=== PATIENT | female | born 1960 | race Caucasian/White ===

== ENCOUNTER 2018-10-06 12:56 | Emergency (ER) | payer MEDICARE, MEDICAID ==
[2018-10-06 13:08] VITALS: BP 118/72
--- NOTE | 2018-10-06 14:46 | ED ---
Throat Pain/Nasal Congestion - HPI Summary HPI Summary: Pt presents w/ Rt ear pain x 2-3 days. Sharp at times and sometimes worse w/ jaw movements. Denies rash or pain on scalp/head/face however she admits to a Rt baptism lesion around the same time - clear vesicle that she ruptured. H/o chix pox and shingles on her Lt back side - occasionally has pain here but none recently. Also dx'd w/ TMJ in the past - unsure if this feels same. Has dentures. Tried tylenol w/ some relief. Denies fever, chills, URI sx, eye sx, etc and no recent injury to face, head or neck. - History of Current Complaint Chief Complaint: UCEar Time Seen by Provider: 10/06/18 14:10 Hx Obtained From: Patient - Allergies/Home Medications Allergies/Adverse Reactions: Allergies Allergy/AdvReac Type Severity Reaction Status Date / Time desloratadine Allergy Intermediate GI Upset Verified 10/06/18 13:11 famciclovir [From Famvir] Allergy Intermediate GI Upset Verified 10/06/18 13:11 Penicillins Allergy Intermediate UPSET Verified 10/06/18 13:11 sulfamethoxazole Allergy Intermediate GI Upset Verified 10/06/18 13:11 [From Bactrim] trimethoprim [From Bactrim] Allergy Intermediate GI Upset Verified 10/06/18 13: 11 ciprofloxacin Allergy GI Upset Verified 10/06/18 13:11 PMH/Surg Hx/FS Hx/Imm Hx Previously Healthy: Yes Endocrine/Hematology History: Reports: Hx Diabetes, Hx Thyroid Disease Cardiovascular History: Reports: Hx Hypertension Respiratory History: Reports: Hx Chronic Obstructive Pulmonary Disease (COPD) - early Denies: Hx Asthma GI History: Denies: Hx Ulcer - Cancer History Cancer Type, Location and Year: cervical CA - - Surgical History Surgery Procedure, Year, and Place: 1990 Cervix. 1999 Lower Back Discectomy. 2002 Cervix and Cysts removed. 2006 Complete Hysterectomy. 2010 Lithotrypsy Rt Kidney Infectious Disease History: Yes Infectious Disease History: Denies: Hx Hepatitis, Hx Human Immunodeficiency Virus (HIV), Hx of Known/ Suspected MRSA, Traveled Outside the [place] in Last 30 Days - Social History Lives: With Family Alcohol Use: None Hx Substance Use: No Substance Use Type: Reports: None Hx Tobacco Use: Yes - not currently Smoking Status (MU): Former Smoker Review of Systems Constitutional: Negative Negative: Fever, Chills, Fatigue Eyes: Negative Negative: Photophobia, Blurred Vision, Diplopia, Drainage, Erythema Positive: Ear Ache. Negative: Epistaxis, Dental Pain, Sore Throat, Nasal Discharge Cardiovascular: Negative Respiratory: Negative Gastrointestinal: Negative Positive: no symptoms reported Musculoskeletal: Other - RT ear pain worse w/ jaw movement Positive: Rash Neurological: Negative Psychological: Normal All Other Systems Reviewed And Are Negative: Yes Physical Exam Triage Information Reviewed: Yes Vital Signs On Initial Exam: Initial Vitals Temp Pulse Resp BP Pulse Ox 97.3 F 106 18 118/72 98 10/06/18 13:04 10/06/18 13:04 10/06/18 13:04 10/06/18 13:04 10/06/18 13:04 Vital Signs Reviewed: Yes Appearance: Positive: Well-Appearing, No Pain Distress, Obese Skin: Positive: Warm, Skin Color Reflects Adequate Perfusion, Dry - scabbed lesion over Rt baptism region - no other lesions observed on inspection of scalp/ face Head/Face: Positive: Normal Head/Face Inspection - as above. Negative: TMJ Tenderness - Lt TMJ clicks w/ movement - no edema and NTTP B/L Eyes: Positive: Normal, EOMI, GALE, Conjunctiva Clear, Other: - no lesions of cornea observed. Negative: Conjunctiva Inflammed, Discharge ENT: Positive: Hearing grossly normal, Pharynx normal, TMs normal - thin film of fine yellow cerumen along superior aspect of Rt EAC - does not appear to be tuching TM which is pearly white and w/o bulging, lesions, erythema or fluid collection - no otorrhea, Uvula midline. Negative: Nasal congestion, Nasal drainage, Tonsillar swelling, Tonsillar exudate, Trismus, Muffled voice, Sinus tenderness Dental: Negative: Abscess @ Neck: Positive: Supple, Nontender, No Lymphadenopathy Respiratory/Lung Sounds: Positive: Clear to Auscultation, Breath Sounds Present. Negative: Unable to speak in full sentences, Fatigue Cardiovascular: Positive: Normal Musculoskeletal: Positive: Normal, Strength/ROM Intact Neurological: Positive: Normal, Sensory/Motor Intact, Alert, Oriented to Person Place, Time, CN Intact II-III, Facial Symmetry, Speech Normal Psychiatric: Positive: Normal Diagnostics - Vital Signs Vital Signs Temp Pulse Resp BP Pulse Ox 10/06/18 13:04 97.3 F 106 18 118/72 98 - Laboratory Lab Statement: Any lab studies that have been ordered have been reviewed, and results considered in the medical decision making process. EENT Course/Dx - Course Course Of Treatment: Definitive cause of Rt ear pain was not identified today. Diff dx: cerumen however this is delicate and non-invasive so low clinical suspicion of cause. She also has some TMJ sx and clincal findings which could be causing pain. Additionally she has a lesion over ther Rt baptism concerning for early onset HZV - discussed starting tx today, testing and close f/u w/ danger s/sx of when to seek earlier tx. Pt agrees w/ plan. - Diagnoses Provider Diagnoses: Right ear pain Discharge - Sign-Out/Discharge Documenting (check all that apply): Patient Departure All imaging exams completed and their final reports reviewed: No Studies - Discharge Plan Condition: Stable Disposition: HOME Prescriptions: ValACYclovir (*) [Valtrex 1 GM(*)] 1 gm PO TID #21 tab Patient Education Materials: Shingles (ED), Temporomandibular Disorder (ED) Referrals: Rudi Fox MD [Primary Care Provider] - Additional Instructions: The definitive diagnosis has not been made however you may have shingles. It is important that you have close follow-up of your ear pain as a result. Call today to schedule appointment in next 1-2 days. If this worsens in the meantime , go to the ED. Additionally, if you develop eye pain, irritation, change in vision, headache, etc, go to the ED. We discussed starting medication versus waiting, especially with your history of allergy to famciclovir. Should you develop a rash, itching, etc, stop medication and start benadryl 50mg then seek medical attention. If you develop difficulty breathing or swallowing, go to the ED. Labs were drawn today to assess for acute shingles - followup with PCP or call here for results if you have not heard in 1 week. You may also have TMJ syndrome - see education for details and treatment options. First follow-up with your dentist to check your denture alignment. If this is normal, you may benefit from physical therapy. - Billing Disposition and Condition Condition: STABLE Disposition: Home
== END 2018-10-06 15:02 | disposition home or self-care (01) ==
LOC: UCEAST 12:56
DX: H92.01 Otalgia, right ear (principal); Z88.0 Allergy status to penicillin; Z88.1 Allergy status to other antibiotic agents; E11.9 Type 2 diabetes mellitus without complications; Z87.891 Personal history of nicotine dependence
CPT/HCPCS: 36415; 86140; 86787; 99202; G0463

== ENCOUNTER 2019-07-19 07:56 | Emergency (ER) | payer MEDICARE, MEDICAID ==
--- OUTSIDE RECORDS SUMMARY | 2019-07-19 08:04 | XMS REPORT | Summary of Care ---
:1960 Author Organization [facility] Address [address] [facility] [place] [address] Care Team Providers Name Role Phone Rudi Fox MD Primary Care Provider Maritza Torres OD Primary Multi Disciplined Language Analyst/Echocardiograph Tech Salud Montiel RN [facility] Supervisor Gas Meter Repair Unavailable Reason for Visit Reason Comments Follow-up Follow-up on GERD & switch to Pantoprazole. Encounter Details Date Type Department Care Team Description 06/08/2019 Office Visit [place], Gastroesophageal reflux disease , esophagitis presence not specified (Primary Dx); Gastroenterology/He Ale Umaña NP Irritable bowel syndrome with diarrhea patology 1 [facility] [address] [facility] [place] [address] [place] [id number] Allergies Active Allergy Reactions Severity Noted Date Comments Moxifloxacin Hydrochloride GI Reaction High 10/14/2008 Reports vomiting, dizzy, confused, racing heart. Bactrim GI Reaction 01/18/2008 Ciprofloxacin GI Reaction 01/18/2008 Clarinex GI Reaction 01/18/2008 Penicillins GI Reaction 01/18/2008 Valtrex GI Reaction 01/18/2008 documented as of this encounter (statuses as of 06/08/2019) Medications Medication Sig Dispensed Refills Start Date End Date Status TYLENOL CAPS 500 MG OR Take by mouth 0 Active 500 MG PO CAPS NEEDED MULTIPLE VITAMIN PO Take 1 by mouth 0 Active DAILY. fexofenadine (TYRA) Take 180 mg by 0 Active 180 MG Oral Tab mouth NEEDED. [place] & Syringes Does by Does not apply 100 Each 5 08/14/2011 Active not apply Misc route. Pen needle uf short BD patient uses 2 times daily 31G x 5/16 Glucose Blood In Vitro 1 Strip by Does 100 Strip 11 04/23/2017 Active Strip not apply route THREE TIMES DAILY. One touch ultra mini test strips DX E11.[address] 1 Tab under 25 Tab 3 05/05/2017 Active (NITROSTAT) 0.4 MG tongue EVERY FIVE Sublingual SL MINUTES NEEDED TabIndications: for chest pain. Coronary artery vasospasm (HCC) BD PEN NEEDLE VISHAL U/F use as directed 100 Each 5 02/02/2018 Active 32G X 4 MM Does not twice a day apply Misc fluticasone (FLONASE) [place] 2 Sprays in 3 Bottle 3 07/13/2018 Active 50 MCG/ACT Nasal nose DAILY. Suspension metFORMIN (GLUCOPHAGE) take 2 tablets by 450 Tab 5 11/10/2018 Active 500 MG Oral Tab mouth every morning then 1 tablet AT NOON and 2 tablets every evening atorvastatin (LIPITOR) take 1 tablet by 90 Tab 3 11/30/2018 Active 40 MG Oral mouth once daily TabIndications: Coronary artery disease meclizine (ANTIVERT) 25 take 1 tablet by 90 Tab 3 01/25/2019 Active MG Oral Tab mouth three times a day Additional information Patient taking differently: take 1 tablet by mouth two times a day, Reported on 03/30/2019 9:20 AM VICTOZA 18 MG/3ML INJECT 0.6 MILLIGRAMS 9 mL 5 01/27/2019 Active Subcutaneous Solution SUBCUTANEOUSLY ONCE DAILY FOR Pen-injector 1 WEEK, 1.2 MILLIGRAMS DAILY FOR 1 WEEK THEN INJECT 1.8 MILLIGRAMS DAILY Additional information Patient taking differently: INJECT 1.8 MILLIGRAMS DAILY, Reported on 2018 9:22 AM BD PEN NEEDLE VISHAL U/F 32G X use as directed once 30 Each 5 01/27/2019 Active 4 MM Does not apply Misc daily pioglitazone (ACTOS) 45 MG Take 1 Tab by mouth 90 Tab 3 03/02/2019 Active Oral Tab DAILY. Alum & Mag Hydroxide-Simeth Take by mouth NEEDED. 0 Active (MYLANTA PO) pantoprazole (PROTONIX) 40 Take 1 Tab by mouth 30 Tab 5 03/30/2019 Active MG Oral Tab EC DAILY. lisinopril (PRINIVIL, Take 1 Tab by mouth 90 Tab 4 04/19/2019 Active ZESTRIL) 20 MG Oral Tab DAILY. albuterol HFA (PROAIR HFA) Take 2 Puffs by 1 Inhaler 4 04/19/2019 Active 108 (90 Base) MCG/ACT inhalation EVERY FOUR Inhalation Aero Soln HOURS NEEDED (short of breath). amLodipine (NORVASC) 5 MG Take 1 Tab by mouth 90 Tab 3 05/05/2019 Active Oral TabIndications: DAILY. Coronary artery vasospasm (HCC) levothyroxine (SYNTHROID) Take 1 Tab by mouth 90 Tab 3 05/25/2019 Active 112 MCG Oral Tab BEFORE BREAKFAST. dicyclomine (BENTYL) 20 MG Take 1 Tab by mouth 120 Tab 1 06/08/2019 Active Oral Tab BEFORE MEALS AND AT BEDTIME NEEDED (diarrhea). documented as of this encounter (statuses as of 06/08/2019) Active Problems Problem Noted Date Adenoma of left adrenal gland 10/23/2017 History of cervical cancer 12/04/2015 Overview: 2006 S/P TSH right ovary left in Adrenal adenoma 06/01/2015 Coronary artery vasospasm 04/27/2015 Coronary artery disease 04/18/2015 Overview: Angina admission [place] Nov 2014 Diagnosis coronary vasospasm/angina Pulmonary nodule, right 04/18/2015 Overview: Ct scan winter [address] scan 5 mm right middle lung Oct 2015 COPD (chronic obstructive pulmonary disease) 04/18/2015 Overview: Mild by [facility] winter 2014 Ex smoker quit 2014, smoked 30-50 pack per day years Gastroesophageal reflux disease without esophagitis 01/28/2009 Overview: EGD negative 10/03 IBS (irritable bowel syndrome) 01/28/2009 History of tobacco use 06/21/2008 Overview: Quit Oct 2005. Restarted 2006. Quit Nov 2014 50 pack per day year history Uncontrolled type 2 diabetes mellitus without complication 06/21/2008 Overview: Hemoglobin A1C 6.1% 4.2014 Essential hypertension, benign 06/21/2008 Hypothyroidism 06/21/2008 Mixed hyperlipidemia 06/21/2008 Chronic low back pain 06/21/2008 Overview: Lumbar disc disease-injury 1994. Lumbar disc surgery discectomy L4-[address] [facility] Neurosurgeon Dr Beltrán [facility] repeat mri showed a second herniated disc L3-4: physical therapy and water therapy-partial response 2009 On disability since 08/02 for chronic low back pain documented as of this encounter (statuses as of 06/08/2019) Resolved Problems Problem Noted Date Resolved Date Type 2 diabetes mellitus without complication 06/01/2015 12/04/2015 Essential hypertension 06/01/2015 02/06/2017 Thyroid activity decreased 06/01/2015 08/01/2016 Hyperlipidemia LDL goal < 100 06/19/2011 04/18/2015 Hypertension 06/19/2011 04/18/2015 Calculus of kidney 06/14/2011 04/18/2015 Gross hematuria 04/26/2011 04/18/2015 Kidney stones 06/03/2009 04/19/2019 Overview: Last episode 2004 [facility] emergency room [address] scan. Dyspepsia 01/28/2009 04/18/2015 Overview: CT scan, bllod work, gastric epmtying scan all normal 06-04 [facility]. Tobacco Use Disorder 04/18/2015 documented as of this encounter (statuses as of 06/08/2019) Immunizations Name Administration Dates Next Due Influenza (IM) Preservative Free 07/29/2018, 07/27/2017, 07/21/2015, 07/29/2011, 07/31/2009 Influenza Vaccine Whole 07/04/2010, 08/29/2008 PNEUMOCOCCAL POLYSACCHARIDE VACCINE 07/31/2009 documented as of this encounter Social History Tobacco Use Types Packs/Day Years Used Date Former Smoker Cigarettes 0.5 20 Smokeless Tobacco: Former User Quit: 12/25/2014 Comments: working with PCP Alcohol Use Drinks/Week oz/Week Comments No Sex Assigned at Date Recorded Not on file Job Start Date Occupation Industry Not on file Not on file Not on file Travel History Travel Start Travel End No recent travel history available. documented as of this encounter Last Filed Vital Signs Vital Sign Reading Time Taken Comments Blood Pressure 114/70 06/08/2019 2:33 PM EDT Pulse 72 06/08/2019 2:33 PM EDT Temperature 36.5 06/08/2019 2:33 PM EDT C (97.7 F) Respiratory Rate - - Oxygen Saturation - - Inhaled Oxygen Concentration - - Weight 93.9 kg (207 lb) 06/08/2019 2:33 PM EDT Height 165.1 cm (5' 5") 06/08/2019 2:33 PM EDT Body Mass Index 34.45 06/08/2019 2:33 PM EDT documented in this encounter Patient Instructions Patient InstructionsWiAle fagan NP - 06/08/2019 2:40 PM EDT1. Continue the Pantoprazole as directed 2. Will start Bentyl before lunch as directed, may repeat the dose 3. Follow up if no improvement Thank you for choosing the [facility] for your needs today! -Ale Swain N.P. , Please call if you need to cancel or change your appt. time. Thank you for choosing [facility] for your health care needs, and for consulting with [facility] today. You may receive a survey following this visit, or after an upcoming hospital stay. As easy as it is to feel overloaded with surveys, we are required to send them out randomly and they do provide important feedback so that we may serve your needs in the best way. Please do take the few minutes required to complete the survey if you receive one. We get them too, after seeing the doctor, and they only take a few minutes to complete. documented in this encounter Progress Notes Ale Swain NP - 06/08/2019 2:40 PM EDT PATIENT: Gilda Fairbanks : 1960 DATE OF SERVICE: 06/08/2019 REFERRING PRACTITIONER: Ale Swain PRIMARY CARE PROVIDER: Rudi Fox CHIEF COMPLAINT: Chief Complaint Patient presents with Follow-up Follow-up on GERD & switch to Pantoprazole. Subjective HISTORY OF PRESENT ILLNESS: Gilda Fairbanks is a 59-y.o. female who presents for follow-up of IBS and GERD. Doing well on Pantoprazole daily, still having diarrhea most afternoons after her lunch. Reports she typically eats watermelon for lunch. Denies abdominal pain,heartburn, dysphagia, fatigue, nausea, vomiting, melena, hamatemesis, hematochezia, constipation, jaundice, fevers, chills, night sweats , weight loss, easy bruising, chest pain,shortness of breath, dysuria, hematuria , pyuria, joint pains, acholic stools, dark urine or systemicpruritis. Current Outpatient Medications Medication Sig albuterol HFA (PROAIR HFA) 108 (90 Base) MCG/ACT Inhalation Aero Soln Take 2 Puffs by inhalation EVERY FOUR HOURS NEEDED (short of breath). Alum & Mag Hydroxide-Simeth (MYLANTA PO) Take by mouth NEEDED. amLodipine (NORVASC) 5 MG Oral Tab Take 1 Tab by mouth DAILY. atorvastatin (LIPITOR) 40 MG Oral Tab take 1 tablet by mouth once daily BD PEN NEEDLE VISHAL U/F 32G X 4 MM Does not apply Misc use as directed twice a day BD PEN NEEDLE VISHAL U/F 32G X 4 MM Does not apply Misc use as directed once daily dicyclomine (BENTYL) 20 MG Oral Tab Take 1 Tab by mouth BEFORE MEALS AND AT BEDTIME NEEDED(diarrhea). fexofenadine (TYRA) 180 MG Oral Tab Take 180 mg by mouth NEEDED. fluticasone (FLONASE) 50 MCG/ACT Nasal Suspension [place] 2 Sprays in nose DAILY. Glucose Blood In Vitro Strip 1 Strip by Does not apply route THREE TIMES DAILY. One touch ultra mini test strips DX E11.9 levothyroxine (SYNTHROID) 112 MCG Oral Tab Take 1 Tab by mouth BEFORE BREAKFAST. lisinopril (PRINIVIL, ZESTRIL) 20 MG Oral Tab Take 1 Tab by mouth DAILY. meclizine (ANTIVERT) 25 MG Oral Tab take 1 tablet by mouth three times a day (Patient taking differently: take 1 tablet by mouth two times a day) metFORMIN (GLUCOPHAGE) 500 MG Oral Tab take 2 tablets by mouth every morning then 1 tablet ATNOON and 2 tablets every evening MULTIPLE VITAMIN PO Take 1 by mouth DAILY. [place] & Syringes Does not apply Misc by Does not apply route. Pen needle uf short BD patient uses 2 times daily 31G x 5/16 nitroglycerin (NITROSTAT) 0.4 MG Sublingual SL Tab Place 1 Tab under tongue EVERY FIVE MINUTES NEEDED for chest pain. pantoprazole (PROTONIX) 40 MG Oral Tab EC Take 1 Tab by mouth DAILY. pioglitazone (ACTOS) 45 MG Oral Tab Take 1 Tab by mouth DAILY. TYLENOL CAPS 500 MG OR 500 MG PO CAPS Take by mouth NEEDED VICTOZA 18 MG/3ML Subcutaneous Solution Pen-injector INJECT 0.6 MILLIGRAMS SUBCUTANEOUSLY ONCE DAILY FOR 1 WEEK, 1.2 MILLIGRAMS DAILY FOR 1 WEEK THEN INJECT 1.8 MILLIGRAMS DAILY (Patient taking differently: INJECT 1.8 MILLIGRAMS DAILY) No current facility-administered medications for this visit. Allergies Allergen Reactions Avelox [Moxifloxacin Hydrochloride] GI Reaction Reports vomiting, dizzy, confused, racing heart. Bactrim GI Reaction Ciprofloxacin GI Reaction Clarinex GI Reaction Penicillins GI Reaction Valtrex [Valtrex] GI Reaction REVIEW OF SYSTEMS: All remaining review of systems was negative except for as noted in the history of present illness/subjective. Objective PHYSICAL EXAMINATION: VITALS: BP 114/70 | Pulse 72 | Temp 97.7 F (36.5 C) | Ht 5' 5" ( 1.651 m) | Wt 207 lb (93.9 kg) | BMI 34.45 kg/m Body mass index is 34.45 kg/m. GENERAL: alert, oriented, no acute distress. HEENT: No scleral icterus, MMM Psych: Affect normal Neck: no lymphadenopathy LUNGS: clear to auscultation bilaterally. HEART: regular rhythm, no murmurs, no gallops, no rubs. ABDOMEN: general exam: soft, epigastrium tender, non-distended, without masses or organomegaly, normal active bowel sounds, Rubalcava's sign negative. Extrmities: no edema Skin: clear Neuro: gait normal, a&o x 3 RECTAL: exam deferred. IMPRESSION: ICD-9-CM ICD-10-CM 1. Gastroesophageal reflux disease, esophagitis presence not specified 530.81 K21.9 2. Irritable bowel syndrome with diarrhea 564.1 K58.0 Plan PLAN: Patient Instructions 1. Continue the Pantoprazole as directed 2. Will start Bentyl before lunch as directed, may repeat the dose 3. Follow up if no improvement Thank you for choosing the [facility] for your needs today! -Ale Swain N.P. , Please call if you need to cancel or change your appt. time. Thank you for choosing [facility] for your health care needs, and for consulting with [facility] today. You may receive a survey following this visit, or after an upcoming hospital stay. As easy as it is to feel overloaded with surveys, we are required to send them out randomly and they do provide important feedback so that we may serve your needs in the best way. Please do take the few minutes required to complete the survey if you receive one. We get them too, after seeing the doctor, and they only take a few minutes to complete. Author: Ale Swain NP 06/08/2019 14:59 documented in this encounter Plan of Treatment Date Type Specialty Care Team Description 07/23/2019 Nurse/Clinical Support Internal Medicine 07/23/2019 Office Visit Internal Medicine Rudi Fox MD [address] [place] [address] [phone] 05/10/2020 Office Visit Cardiology Ulysses Ramires MD [address] [place] [id number] Health Maintenance Due Date Last Done Comments MEDICARE ANNUAL WELLNESS 1960 VISIT ZOSTER IMMUNIZATION SERIES 2011 (1 of 2) HEMOGLOBIN A1C 05/18/2019 02/16/2019, 04/08/2018, 11/26/2017, Additional history exists INFLUENZA VACCINE (#1) 2019 07/29/2018, 07/27/2017, 07/21/2015, Additional history exists FOOT EXAM 02/18/2020 02/17/2019, 02/17/2019, 01/26/2018, Additional history exists DEPRESSION SCREENING 04/19/2020 04/19/2019 MAMMOGRAM (SCREENING) 05/05/2020 05/05/2019, 04/28/2018, 03/03/2017, Additional history exists LIPID DISORDER SCREENING 06/01/2020 06/01/2019, 11/30/2018, 04/08/2018, Additional history exists Diabetic Eye Exam 07/28/2020 07/28/2018, 07/22/2017, 07/19/2016 COLONOSCOPY SCREENING 04/04/2027 04/04/2017, 04/04/2017, 04/12/2014 (Previously completed), Additional history exists PNEUMOCOCCAL 0-64 YRS Completed 07/31/2009 HPV IMMUNIZATION SERIES Aged Out No longer eligible based on patient's age to complete this topic MENINGOCOCCAL VACCINE IMM Aged Out No longer eligible based on patient's age to complete this topic documented as of this encounter Goals Goal Patient Goal Associated Recent Patient-Stated? Author Type Problems Progress Blood Pressure Blood Pressure 114/70 No Tee, < 140/90 (06/08/2019 Carol, 2:33 PM EDT) Note: This is an individualized treatment (blood pressure) goal for Gilda Fairbanks: Displayed above (on the left) is your goal for blood pressure control. Your most recent blood pressure is also shown above, on the right. You should try to achieve blood pressures that are lower than your goal listed above (on the left). Glycohemoglobin A1c < 7.0 Diabetes 6.6 (04/08/2018 8:34 No Carol Oliveira, AM EDT) Note: This is an individualized treatment (diabetes control, HgbA1C) goal for Gilda Fairbanks: Displayed above is your progress towards your HgbA1C goal. Your goal is shown above (on the left); your most recent HgbA1C is shown on the right. Note that lower numbers are better. Weight loss vs. 18 mo Lifestyle 7 (06/08/2019 2:33 PM No Carol Oliveira MD max (lbs) >= 10 EDT) Note: This is an individualized lifestyle goal for Gilda Fairbanks: Your body mass index (BMI) is more than 30. You should lose weight. A reasonable starting goal is to lose 10 pounds. Displayed above is how many pounds you have lost thus far towards your 10 pound weight loss goal. Keep immunizations current Lifestyle No Carol Oliveira MD Note: This is an individualized lifestyle goal for Gilda Fairbanks: Please be sure to keep up-to-date on recommended immunizations. For example, this would include a yearly influenza vaccine. Immunization status can be seen by looking at the Health Maintenance sections of your [facility], Plan of Care, and any After Visit Summaries. Take all prescribed medications as Self-management No Carol Oliveira MD directed Note: This is an individualized self-management goal for Gilda Fairbanks: Please take all prescribed medications as directed. 1. Do not skip doses. If you cannot afford your medications, talk with your doctor. 2. Use a pill reminder system such as a pill box if needed. Your pharmacist can help you with this. 3. Contact your Pharmacy 5 days before your medication runs out. If you cannot take your medications for any reasons, talk with your doctor. 4. Please bring all of your medication bottles and inhalers (or a list of all your medications/inhalers) with you to every visit. Potential barriers to meeting all of your care plan goals will continue to be addressed on an ongoing basis. documented as of this encounter Results Not on filedocumented in this encounter Visit Diagnoses Diagnosis Gastroesophageal reflux disease, esophagitis presence not specified - Primary Irritable bowel syndrome with diarrhea Irritable bowel syndrome documented in this encounter Insurance Payer Benefit Plan / Subscriber ID Effective Dates Phone Address Type Group MEDICARE MEDICARE PART A xxxxxxxxxxx 2006-Present Medicare & B [place] xxxxxxxx 2016-Present Medicaid [place] MED[place] Guarantor Name Account Type Relation to Date of Phone Billing Patient Address Gilda Fairbanks Personal/Family [address] ([address]) [address] [place], [place] ([place]) [id number] documented as of this encounter
[2019-07-19 08:07] VITALS: BP 113/68
--- NOTE | 2019-07-19 08:45 | UC ---
Hand/Wrist HPI - HPI Summary HPI Summary: Patient presents to urgent care for evaluation of her right middle finger. Patient's left hand. Patient states last night she was on the floor picking up some wheeze. Patient she stood up with her finger in the flex position and put on the ground. Patient states she felt a pop popped. Patient with pain at her PIP since this time. Patient stated little bit of swelling. Patient took some Tylenol last night at health. Patient did apply ice. No analgesia today. Patient states she wanted to get checked to make sure wasn't broken. Patient without a previous history of injury to her hand. Patient's skin intact. Patient's medications reviewed this visit. - History Of Current Complaint Chief Complaint: UCUpperExtremity Stated Complaint: FINGER INJURY Time Seen by Provider: 07/19/19 08:14 Hx Obtained From: Patient ?: No Pain Intensity: 6 - Allergies/Home Medications Allergies/Adverse Reactions: Allergies Allergy/AdvReac Type Severity Reaction Status Date / Time desloratadine Allergy Intermediate GI Upset Verified 07/19/19 08:08 famciclovir [From Famvir] Allergy Intermediate GI Upset Verified 07/19/19 08:08 Penicillins Allergy Intermediate UPSET Verified 07/19/19 08:08 sulfamethoxazole Allergy Intermediate GI Upset Verified 07/19/19 08:08 [From Bactrim] trimethoprim [From Bactrim] Allergy Intermediate GI Upset Verified 07/19/19 08: 08 ciprofloxacin Allergy GI Upset Verified 07/19/19 08:08 Home Medications: Home Medications Dulaglutide [Trulicity] 1 % IM WEEKLY 07/19/19 [History Confirmed 07/19/19] Pantoprazole TAB * [Protonix TAB*] 1 tab PO DAILY 07/19/19 [History Confirmed ] Pioglitazone TAB* [Actos TAB*] 1 tab PO DAILY 07/19/19 [History Confirmed ] PMH/Surg Hx/FS Hx/Imm Hx Previously Healthy: Yes - Surgical History Surgical History: Yes Surgery Procedure, Year, and Place: 1990 Cervix. 1999 Lower Back Discectomy. 2002 Cervix and Cysts removed. 2006 Complete Hysterectomy. 2010 Lithotrypsy Rt Kidney - Family History Known Family History: Positive: Non-Contributory - Social History Lives: With Family Alcohol Use: None Substance Use Type: None Smoking Status (MU): Former Smoker When Did the Patient Quit Smoking/Using Tobacco: about 6 montsh ago Review of Systems All Other Systems Reviewed And Are Negative: No Constitutional: Positive: Negative Skin: Positive: Bruising Musculoskeletal: Positive: Other: - Right middle finger pain Physical Exam - Summary Physical Exam Summary: Vital Signs Reviewed: Yes A+Ox3, no distress Eyes: Conjunctiva Clear ENT: Hearing grossly normal neck: supple Respiratory: Positive: No respiratory distress, No accessory muscle use Cardiovascular: skin color reflect adequate perfusion 2+ radial, 2+ ulnar CBT < 2 sec Musculoskeletal Exam: + flex/ext MCP, DIP, PIP against resistance, mild discomfort at PIP with full flexion, no lateral joint laxity with testing. Neurological: Positive: Alert, ambulatory without difficulty Psychological: Positive: Normal Response To examiner Skin: Positive: no rash, mild edema, mild ecchymosis right prox DIP mild edema mild discomfort with palpation dorsum right DIP Triage Information Reviewed: Yes Vital Signs: Initial Vital Signs Temp 97.8 F 07/19/19 08:03 Pulse 66 07/19/19 08:03 Resp 16 07/19/19 08:03 BP 113/68 07/19/19 08:03 Pulse Ox 100 07/19/19 08:03 Diagnostics - Radiology No standard instances Radiology Interpretation Completed By: Radiologist - Patient Name: GABRIEL PERES Medical Record#: [id number] Ordering Physician: Niyah Joy MD Acct.#: [id number] : 1960 Age: 59 Sex: F Location: [facility] Exam Date: 07/19/19814 ADM Status: REG ER Order Information: FINGER RIGHT MIDDLE Accession Number: [id number] CPT: 07242 Indication: Pain PIP joint RIGHT third finger following forced flexion injury yesterday. Ecchymosis. Comparison: No relevant prior exams available on the [facility] PACS for comparison. Technique: 3 views RIGHT third finger REPORT AND IMPRESSION: #. Negative for fracture or articular malalignment. Fusiform soft tissue swelling most prominent at the PIP joint. _ <Electronically signed by Regis Lake MD in OV> 07/19/19839 Dictated By: Regis Lake MD Dictated Date/Time: 07/19/19837 Transcribed Date/Time: 07/19/19837 Copy to: CC:Niyah Joy MD; Rudi Fox MD Imaging - [facility] Imaging - [facility] Imaging - [facility] [id number] [place] [id number] [place] [id number] ph ([phone]) ph ([phone] ph [phone]) This report is only to be considered final once signed by the Provider(s ) as displayed in the "<Electronically Signed by >" field (s). Absence of a signature indicates the report is in a draft status and still needs to be finalized. In the event this document was created by someone other than the signing Provider, the individual initiating the document will be listed in the "Entered by:" or "Dictated by:" katz. 1 of 1 Hand/Wrist Course/Dx - Course Course Of Treatment: Patient presents to urgent care for evaluation of a right middle finger. Patient states she stood up yesterday with her hand in a flexed position. Patient states she postop from middle finger developed some pain after she heard a pop. Patient with mild edema to the right middle PIP joint. Patient with full range of motion against resistance. Patient with good sensation and cap refill. We'll check imaging studies. Low suspicion for fracture. We'll place and splint. Motrin Tylenol. Ice. Elevate. Follow-up with orthopedics PCP. Patient states agreement and comfortable with plan. declined work note - Differential Dx/Diagnosis Provider Diagnosis: Sprain of right middle finger Discharge ED - Sign-Out/Discharge Documenting (check all that apply): Patient Departure All imaging exams completed and their final reports reviewed: Yes - Discharge Plan Condition: Stable Disposition: HOME Patient Education Materials: Finger Sprain (ED) Referrals: Rudi Fox MD [Primary Care Provider] - Isma Amanda MD [Medical Doctor] - Additional Instructions: - Wear splint as much as possible for comfort and support - Okay to alternate ibuprofen (Advil, Motrin) and Tylenol (acetaminophen) every 3 hours for pain or fever. Take with food. Do NOT take for more than 4-5 days. - Okay to apply ice (wrapped in a towel) 20 minutes at a time, 2-3 times a day. - Your pain should improve over the next several days - if you have increased pain, swelling, reddness or any other concerns it is recommended you contact the simulation specialist or your primary doctor for re-evaluation. - Billing Disposition and Condition Condition: STABLE Disposition: Home
== END 2019-07-19 09:02 | disposition home or self-care (01) ==
LOC: UCEAST 07:56
DX: S63.612A Unspecified sprain of right middle finger, initial encounter (principal); X50.9XXA Other and unspecified overexertion or strenuous movements or postures, initial encounter; Y92.9 Unspecified place or not applicable; Z88.0 Allergy status to penicillin; Z88.2 Allergy status to sulfonamides; Z87.891 Personal history of nicotine dependence
CPT/HCPCS: 73140; 99211; G0463

== ENCOUNTER 2019-10-20 12:27 | Observation (INO) | payer MEDICARE, MEDICAID ==
--- NOTE | 2019-10-20 12:40 | ED ---
Upper Extremity Pain - HPI Summary HPI Summary: The patient is a 59 y/o F presenting to [facility] with a chief complaint of LUE pain onset this morning around 0800. She reports that the pain begins in the left axilla and radiates into the left anterior chest and scapular region as well as down the arm. There is intermittent numbness in the left arm and into the fingers. She notes few days of nausea. She denies any SOB, cough, diaphoresis, edema, or calf pain. Symptoms rated 3/10 in severity. She had one 81mg ASA today. No NTG today. She has history of cardiac disease (artery that spasms, unsure of name); current episode is different that the spasms she has had in the past. Last stress test and cardiac cath a few years ago. FHx: cardiac disease. PMHx: HTN, DM, hypothyroidism, GERD, COPD. Former smoker, no EtOH, no substance use. Medications reviewed. Allergies noted. - History of Current Complaint Chief Complaint: EDExtremityUpper Stated Complaint: L ARM PAIN PER PT Time Seen by Provider: 10/20/19 12:32 Hx Obtained From: Patient Mechanism Of Injury: Unknown Onset/Duration: Started Hours Ago - 0800, Still Present Timing: Lasting Hours Severity Initially: Moderate Severity Currently: Moderate Pain Location: Other: - left axilla down arm, into scapula, and into left anterior chest Character: Dull Aggravating Factor(s): Nothing Alleviating Factor(s): Nothing Associated Signs & Symptoms: Positive: Chest Pain, Nausea, Other - numbness in LUE; Negative: cough, edema, calf pain. Negative: SOB, Diaphoresis - Allergies/Home Medications Allergies/Adverse Reactions: Allergies Allergy/AdvReac Type Severity Reaction Status Date / Time desloratadine Allergy Intermediate GI Upset Verified 10/20/19 12:31 famciclovir [From Famvir] Allergy Intermediate GI Upset Verified 10/20/19 12:31 Penicillins Allergy Intermediate UPSET Verified 10/20/19 12:31 sulfamethoxazole Allergy Intermediate GI Upset Verified 10/20/19 12:31 [From Bactrim] trimethoprim [From Bactrim] Allergy Intermediate GI Upset Verified 10/20/19 12: 31 ciprofloxacin Allergy GI Upset Verified 10/20/19 12:31 PMH/Surg Hx/FS Hx/Imm Hx Endocrine/Hematology History: Reports: Hx Diabetes - diet controlled, Hx Thyroid Disease Cardiovascular History: Reports: Hx Hypertension Respiratory History: Reports: Hx Chronic Obstructive Pulmonary Disease (COPD) - early Denies: Hx Asthma GI History: Denies: Hx Ulcer - Cancer History Cancer Type, Location and Year: cervical CA - - Surgical History Surgical History: Yes Surgery Procedure, Year, and Place: 1990 Cervix. 1999 Lower Back Discectomy. 2002 Cervix and Cysts removed. 2006 Complete Hysterectomy. 2010 Lithotrypsy Rt Kidney Infectious Disease History: No Infectious Disease History: Denies: Hx Hepatitis, Hx Human Immunodeficiency Virus (HIV), Hx of Known/ Suspected MRSA, Traveled Outside the [place] in Last 30 Days - Family History Known Family History: Positive: Cardiac Disease - Social History Alcohol Use: None Hx Substance Use: No Substance Use Type: Reports: None Hx Tobacco Use: Yes - not currently Smoking Status (MU): Former Smoker Review of Systems Negative: Skin Diaphoresis Positive: Chest Pain - left anterior Negative: Shortness Of Breath, Cough Positive: Nausea Positive: Myalgia - left axilla into anterior chest and into scapula. Negative : Edema, Other - calf pain Positive: Numbness - left arm into fingers All Other Systems Reviewed And Are Negative: Yes Physical Exam - Summary Physical Exam Summary: Constitutional: Well-developed, Well-nourished, Alert. (-) Distressed Skin: Warm, Dry HENT: Normocephalic; Atraumatic Eyes: Conjunctiva normal Neck: Musculoskeletal ROM normal neck. (-) JVD, (-) Stridor, (-) Tracheal deviation Cardio: Rhythm regular, rate normal, Heart sounds normal; Intact distal pulses; Radial pulses are 2+ and symmetric. (-) Murmur Pulmonary/Chest wall: Effort normal. (-) Respiratory distress, (-) Wheezes, (-) Rales Abd: Soft, (-) tenderness, (-) Distension, (-) Guarding, (-) Rebound Musculoskeletal: (-) Edema Lymph: (-) Cervical adenopathy Neuro: Alert, Oriented x3 Psych: Mood and affect Normal Triage Information Reviewed: Yes Vital Signs On Initial Exam: Initial Vitals Temp Pulse Resp BP Pulse Ox 98.6 F 86 17 142/89 99 10/20/19 12:29 10/20/19 12:29 10/20/19 12:29 10/20/19 12:29 10/20/19 12:29 Vital Signs Reviewed: Yes Procedures - Sedation Patient Received Moderate/Deep Sedation with Procedure: No Diagnostics - Vital Signs Vital Signs Temp Pulse Resp BP Pulse Ox 10/20/19 12:29 98.6 F 86 17 142/89 99 - Laboratory Result Diagrams: 10/20/19 12:49 10/20/19 12:49 Lab Statement: Any lab studies that have been ordered have been reviewed, and results considered in the medical decision making process. - Radiology CXR Radiology Interpretation Completed By: Radiologist Summary of Radiographic Findings: Impression: No radiographic evidence of acute cardiopulmonary disease. ED physician has reviewed this report. - EKG 1242 Cardiac Rate: NL - 94 bpm EKG Rhythm: Sinus Rhythm EKG Comparison: No Significant Change - Unchanged from 04/03/05. Summary of EKG Findings: EKG at 1242 reveal sinus rhythm at 94 bpm. T-wave inversion in III, V2, and V3. No STEMI. ED physician has reviewed and interpreted this EKG. Re-Evaluation - Re-Evaluation First Eval Re-Evaluation Time: 13:30 Change: Improved Comment: Symptoms better with NTG. Discussed plan for admission. Course/Dx - Course Course Of Treatment: Patient is here with pain in her axilla, left anterior chest, and numbness down her left arm. Patient's episode started today while she was doing chores at home. Patient had a similar episode 5 days ago. Patient's pain is not worse with movement. Patient does have a history of what sounds like Prinzmetal angina. Patient was given a dose of nitroglycerin here with improvement in her symptoms. Patient was given aspirin as well. Patient had an EKG which showed no ischemic changes compared to prior but did have some T-wave inversions in the anterior and inferior leads. Patient had negative troponin. Patient's story is not consistent with aortic dissection and she has a well score of 0 for PE. Given patient's heart score of 5, patient was admitted to the hospital for stress test. - Diagnoses Provider Diagnoses: Chest pain, Left arm numbness - Physician Notifications Discussed Care of Patient With: Isma Chin - hospitalist Time Discussed With Above Provider: 13:45 Instructed by Provider To: Admit As Observation - I discussed the patients case with Dr. Chin, who accepts the patient for admission. Discharge ED - Sign-Out/Discharge Documenting (check all that apply): Patient Departure - Patient accepted for admission by Dr. Chin. - Discharge Plan Condition: Stable Disposition: ADMITTED TO [facility] - Billing Disposition and Condition Condition: STABLE Disposition: Admitted to [facility] - Attestation Statements Document Initiated by Matteo: Yes Documenting Scribe: Wanda Hudson Provider For Whom Matteo is Documenting (Include Credential): Dr. Zafar Jean MD Scribe Attestation: Wanda Brito scribed for Dr. Zafar Jean MD on 10/20/19 at 1531. Scribe Documentation Reviewed: Yes Provider Attestation: The documentation as recorded by the Wanda rojas accurately reflects the service I personally performed and the decisions made by me, Dr. Zafar Jean MD Status of Scribe Document: Viewed
[2019-10-20] MEDS ORDERED: Aspirin 81 mg CHEW TAB* 81 MG TAB.CHEW PO ONE (12:43)
[2019-10-20] MEDS ORDERED: Nitroglycerin TAB 0.4 MG* 0.4 MG TAB SL ONE (12:43)
[2019-10-20 13:09] LABS: ABS Basophils 0.1 10^3/ul (0-0.2); ABS Eosinophils 0.1 10^3/ul (0-0.6); ABS Lymphocytes 3.2 10^3/ul (1.0-4.8); ABS Monocytes 0.6 10^3/ul (0-0.8); ABS Neutrophils 5.6 10^3/ul (1.5-7.7); Eosinophil % 1.4 %; Hematocrit 40 % (35-47); Hemoglobin 13.5 g/dL (12.0-16.0); Lymphocyte % 33.4 %; Mean Corpuscular HGB Conc 34 g/dL (31-36); Mean Corpuscular Hemoglobin 30 pg (27-31); Mean Corpuscular Volume 89 fL (80-97); Mean Platelet Volume 7.6 fL (7.4-10.4); Nucleated Red Blood Cells % 0.1; Platelet Count 342 10^3/uL (150-450); Red Cell Distribution Width 15 % (10-15); White Blood Count 9.6 10^3/uL (3.5-10.8)
[2019-10-20 13:19] LABS: Albumin 4.5 g/dL (3.2-5.2); Albumin/Globulin Ratio 1.5 (1-3); BUN/Creatinine Ratio 17.5 (8-20); Calcium 9.4 mg/dL (8.6-10.3); EGFR African American 89.1 (>60); EGFR Non-African American 73.7 (>60); Globulin 3.1 g/dL (2-4); Potassium 4.5 mmol/L (3.5-5.0); Total Bilirubin 0.3 mg/dL (0.2-1.0); Total Protein 7.6 g/dL (6.4-8.9)
[2019-10-20] MEDS ORDERED: Ondansetron INJ* 2 MG/ML VIAL IV PRN (14:43)
[2019-10-20] MEDS ORDERED: Acetaminophen TAB* 325 MG PO PRN (14:43)
[2019-10-20] MEDS ORDERED: Enoxaparin(*) 40 MG/0.4 ML SYR SUBCUT SCH (15:00)
[2019-10-20] MEDS: metFORMIN* 500 MG TAB PO SCH (15:18)
[2019-10-20] MEDS ORDERED: Pantoprazole TAB * 40 MG TAB ONE (16:25)
[2019-10-20] MEDS: Pantoprazole TAB * 40 MG TAB PO SCH (16:27)
[2019-10-20] MEDS: metFORMIN* 1,000 MG TAB PO SCH (17:10)
--- NOTE | 2019-10-20 20:08 | HP ---
CC: Dr. Fox; Dr. Ramries* ADMISSION HISTORY AND PHYSICAL: DATE OF ADMISSION: 10/20/19 PRIMARY CARE PROVIDER: Dr. Fox. GRAVEL WEIGHER: Dr. Ramires. HEALTHCARE PROXY: Her son. CODE STATUS: Full. SOURCE OF INFORMATION: History obtained from interview with the patient and review of past medical records. RELIABILITY: Good. CHIEF COMPLAINT: Chest discomfort. 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 She has been fine for the last 5 intervening days; however, today this morning while taking down the Mango tree and decorations, she developed pain again in her left armpit that radiated to her chest and down her arm associated with left arm numbness and finger tingling that lasted for several minutes. She described the pain as sharp. They got better with rest; however, it was worse again with any activity that included taking down the decorations again. She had no nausea, vomiting, although indicates her stomach has recently had some distress because of abnormal eating around the holidays and her IBS. She denies shortness of breath, diaphoresis, lightheadedness. No orthopnea or PND. Her baseline activity, she can clean her house. She has pedals that is not associated with a bike, but uses to exercise at home. There are no stairs that she ambulates and tries to park far away from [facility] when she goes and can walk around 3 or more times with an unlimited capacity while shopping. Again, as noted above, she indicates she has a "artery that spasms", which may seem to indicate coronary vasospasm that associated more with a chest pain that is substernal "like a knife in my chest " radiating to her back that was diagnosed in 2014 after her left heart cath. She did have a stress test years ago for evaluation of an abnormal EKG. PAST MEDICAL HISTORY: Includes coronary vasospasm by history, hypothyroidism, type 2 diabetes, hyperlipidemia, hypertension, GERD, anemia, IBS, chronic back pain, lumbar diskectomy, and MALLORY/BSO. HOME MEDICATIONS: Not up-to-date in the computer; however, reviewed with the patient and her home medications list includes: 1. Amlodipine 5 mg daily. 2. Atorvastatin 40 mg at bedtime. 3. Aspirin 81 mg daily. 4. Cyclobenzaprine 5 mg 2 at bedtime as needed. 5. Levothyroxine 125 mcg in the morning. 6. Lisinopril 20 mg at bedtime. 7. Meclizine 25 mg twice daily. 8. Metformin 1000 mg in the morning and the evening, and 500 mg at noon. 9. Sublingual nitroglycerin as needed. 10. Pantoprazole 40 mg 1.5 hours before dinner. 11. Pioglitazone 45 mg at bedtime. 12. ProAir HFA 2 puffs as needed. 13. Trulicity 1.5 mg injections on Sundays. 14. Flonase 50 mg 2 squirts each nostril daily. 15. Neha 180 mg daily as needed. 16. Tylenol 500 mg daily as needed. 17. Multivitamin 1 tab daily. ALLERGIES: Include DESLORATADINE, FAMVIR, BACTRIM, CIPROFLOXACIN, which all cause GI distress and PENICILLIN, which caused face puffiness. FAMILY HISTORY: Notable for mother with insulin-dependent type 2 diabetes mellitus. SOCIAL HISTORY: Quit tobacco in 2014. Smoked for 25 years, 1.5 packs per day. No alcohol. She is disabled secondary to back pain. REVIEW OF SYSTEMS: As per HPI. Otherwise, all other systems negative. PHYSICAL EXAMINATION GENERAL: Sitting up in bed, interactive, pleasant, in no apparent distress. VITAL SIGNS: When seen by this author, 120/80, heart rate is 91, respiratory rate is 16, she is 99% on room air, T-max 98.6. HEENT: Oropharynx is clear. She has moist mucous membranes. Sclerae anicteric. LUNGS: Clear to auscultation bilaterally. HEART: She has a regular rate and rhythm. No murmurs, rubs or gallops, although her heart sounds are distant. ABDOMEN: Soft, nontender, nondistended. EXTREMITIES: Warm, well perfused. She has trace bilateral lower extremity edema at her ankles. Good cap refill. NEUROLOGIC: She is alert and oriented x3. Cranial nerves II through XII are intact. PSYCH: She has no apparent anxiety, agitation or depression. SKIN: Notable for small nonblanching erythematous dots on her back. DIAGNOSTIC STUDIES/LAB DATA: Labs reviewed: Notable for glucose 178, troponin I 0.00, hemoglobin 13.5. Data reviewed: Chest x-ray, no active cardiopulmonary disease on this author's interpretation. EKG notable for sinus rhythm, normal limit axis, normal R-wave progression, T wave inversion in V2, V3, V4 with submillimeter ST depressions in lead 2, submillimeter to [address] depressions in V2, V3, V4, V5. Compared to her prior, she had T wave inversions in V2, V3, V4. T wave ST depressions were not as prominence at that time. ASSESSMENT AND PLAN: This is a 59-year-old female with past medical history of coronary vasospasm, hypertension, hyperlipidemia, and type 2 diabetes, presenting with chest discomfort with exertion, improving with rest. 1. Typical chest pain. Concerning symptomatology, especially with new onset and association with chest pain 4 to 5 days prior to presentation. Her EKG does have previous T wave inversions; however, ST depressions appear new on this visit. We will continue the patient on aspirin, trend troponins. She is currently chest pain free. If she develops chest pain again or elevated troponin, consider heparin, which we will not initiate at this time. Abnormal EKG, so we will plan on nuclear imaging, stress test tomorrow. She failed exercise stress in the past, was converted to chemical, so we are planning for chemical stress with nuclear imaging tomorrow. Check lipids in the morning. Hemoglobin A1c added on to ER labs. 2. Type 2 diabetes. Continue home medications. Check hemoglobin A1c as above. 3. Hypertension. Continue home medications including amlodipine, which may also be for coronary vasospasm, lisinopril. 4. Hypothyroidism. Continue levothyroxine. 5. Hyperlipidemia. Continue atorvastatin at 40. Consider increasing dose if troponin increases. 6. DVT prophylaxis. Heparin subcu. [id number]/[facility] #: [id number] MTDD
[2019-10-20] MEDS ORDERED: Atorvastatin* 40 MG TAB PO SCH (21:00)
[2019-10-20] MEDS ORDERED: Pioglitazone TAB* 15 MG PO SCH (21:00)
[2019-10-20] MEDS ORDERED: Lisinopril TAB* 10 MG PO SCH (21:00)
[2019-10-21] MEDS: Levothyroxine TAB* 125 MCG TAB PO SCH ×2 (05:38→07:46)
[2019-10-21 06:04] LABS: HDL Cholesterol 40.3 mg/dL
[2019-10-21 07:01] LABS: Hepatitis C Antibody Negative (Negative)
[2019-10-21] MEDS: metFORMIN* 1,000 MG TAB PO SCH (07:48)
[2019-10-21] MEDS: Pantoprazole TAB * 40 MG TAB PO SCH (07:48)
[2019-10-21] MEDS ORDERED: Aspirin EC TAB* 81 MG TAB.EC PO SCH (08:30)
[2019-10-21] MEDS ORDERED: Fluticasone NASAL SPRAY 50MCG* 16 gm SPRAY BTL BOTH NARES SCH (09:00)
[2019-10-21] MEDS ORDERED: amLODIPine TAB* 5 MG PO SCH (09:00)
[2019-10-21] MEDS ORDERED: Regadenoson* 0.4 MG/5 ML SYRINGE ONE ×2 (10:00→10:04)
[2019-10-21] MEDS ORDERED: Aminophylline IV* 25 MG/ML 10 ML VIAL ONE ×2 (10:00→10:04)
[2019-10-21 12:15] VITALS: BP 135/79
[2019-10-21] MEDS: metFORMIN* 500 MG TAB PO SCH (13:24)
--- NOTE | 2019-10-21 21:43 | DS ---
CC: Dr. Rudi Fox; Dr. Ulysses Ramires* DISCHARGE SUMMARY: DATE OF ADMISSION: 10/20/19 DATE OF DISCHARGE: 10/21/19 PRIMARY CARE PROVIDER: Dr. Rudi Fox. MILL TURNER: Dr. Ulysses Ramires. ATTENDING PHYSICIAN: Dr. Lizzie Don* (dictated by Christiana Schuster NP). PRIMARY DIAGNOSIS: Chest pain, acute coronary syndrome ruled out. SECONDARY DIAGNOSES: 1. History of coronary artery vasospasm. 2. Diabetes mellitus type 2. 3. Hypothyroidism. 4. Hyperlipidemia. 5. Hypertension. 6. Gastroesophageal reflux disease. 7. Anemia. 8. Irritable bowel syndrome. 9. Chronic pain. STUDIES WHILE IN THE HOSPITAL: 1. EKG on 10/20/19 shows normal sinus rhythm with a rate of 94, QTc 454. T- wave inversion in V1 through V3, minimal ST depression in V2 through V6. 2. Chest x-ray on 10/20/19 reads as no radiographic evidence of acute cardiopulmonary disease. 3. Nuclear cardiac stress test on 10/21/19 reads as no scintigraphic evidence of ischemia or infarction. Assessment is low risk. HISTORY OF PRESENT ILLNESS AND HOSPITAL COURSE: Ms. Fairbanks is a 59-year-old female with past medical history of coronary artery vasospasm, hypothyroidism, diabetes type 2, hyperlipidemia, hypertension, GERD, anemia, and chronic pain, who presented to the emergency room on 10/20/19 with complaints of chest pain. Please see the history and physical by Dr. Chin for complete summary of the events leading up to this hospitalization. In short, the patient does have a history of coronary artery vasospasm, which was reportedly diagnosed during a cardiac catheterization in 2014. She had been in her usual state of health though developed intermittent chest pain 4 to 5 days prior to presentation. There was associated pain to the left axilla and numbness and tingling to the left arm. Due to the recurrent pain, the patient presented to the emergency room. In the emergency room, she was noted to have an EKG with minimal ST changes. She was noted to have normal vital signs and a negative troponin, though because of her history she was admitted for further evaluation. The patient was monitored on telemetry overnight without any significant arrhythmias noted. She did undergo a nuclear cardiac stress test this morning with results noted above. It was noted to be low risk. The patient did have 2 additional troponins, which were flat at 0.00. She does have a lipid panel this morning showed triglycerides of 253, total cholesterol 145, LDL of 54, and HDL of 40. Hemoglobin A1c was noted to be 7.2. At this point, the patient has not had any recurrent symptoms being here in the hospital and she is anxious to return home. PHYSICAL EXAMINATION: On exam, she is alert and oriented x4 without any focal neurological deficits. Heart has a regular rate and rhythm without murmurs, rubs, or gallops. Lungs are clear to auscultation. There is no edema. Physical exam is otherwise benign. Ms. Fairbanks is stable for discharge. Most recent vitals are as follows: Temp 97.8, heart rate 69, respiratory rate 16, oxygen saturation 98% on room air, blood pressure 135/79. DISCHARGE MEDICATIONS: Continued medications: 1. Albuterol MDI 1 puff q.4 hours p.r.n. shortness of breath. 2. Amlodipine 5 mg p.o. daily. 3. Aspirin 81 mg p.o. daily. 4. Atorvastatin 40 mg p.o. daily. 5. Trulicity 1.5 mg subcu weekly. 6. Fexofenadine 180 mg p.o. daily. 7. Fluticasone 2 sprays both nares daily. 8. Levothyroxine 125 mcg p.o. daily. 9. Lisinopril 20 mg p.o. daily. 10. Meclizine 25 mg p.o. q.6 hours p.r.n. dizziness. 11. Metformin 1000 mg p.o. at breakfast and dinner. 12. Metformin 500 mg p.o. at lunch. 13. Nitro 0.4 mg sublingual p.r.n. chest pain. 14. Pantoprazole 40 mg p.o. daily. 15. Pioglitazone 45 mg p.o. daily. DISCHARGE PLAN: Ms. Fairbanks will be discharged home. Activity will be as tolerated. Diet will be heart healthy. Medications are noted above. The patient can continue her usual medications as I have not made any further changes. We did obtain records including Dr. Ramires's most recent progress note and the patient is currently taking the medications recommended by him, so we have not made any further changes. At this point, it is not entirely clear what was the cause of her chest pain, although it is possible that this was an episode of coronary artery vasospasm. The patient should follow up with her wire brusher within the next month. She should follow up with her PCP in the next 4 to 7 days. She should return to the emergency room or nearest hospital for any worsening of symptoms, shortness of breath, lightheadedness, dizziness, chest discomfort, high fevers, chills, night sweats, loss of consciousness, or any other worrisome signs or symptoms. DISCHARGE CONDITION: Stable. DISCHARGE DISPOSITION: Home. This is a summarized report of a complex medical history and hospital stay. For further details, please see the entire medical record. TIME SPENT: Approximately 40 minutes was spent on this discharge. CHRISTIANA SCHUSTER NP [id number]/[facility] #: [id number] DARIO
== END 2019-10-21 13:30 | disposition home or self-care (01) ==
LOC: ED 12:27 → MEDTELE 14:43
PROVIDERS: ADMIT Internal Medicine; ATTEND Internal Medicine
DX: R07.9 Chest pain, unspecified (principal); E11.9 Type 2 diabetes mellitus without complications; E03.9 Hypothyroidism, unspecified; E78.5 Hyperlipidemia, unspecified; I10 Essential (primary) hypertension; K21.0 Gastro-esophageal reflux disease with esophagitis; D64.9 Anemia, unspecified; K58.9 Irritable bowel syndrome, unspecified; G89.29 Other chronic pain; Z79.82 Long term (current) use of aspirin; Z79.899 Other long term (current) drug therapy; Z87.891 Personal history of nicotine dependence; J44.9 Chronic obstructive pulmonary disease, unspecified; R20.0 Anesthesia of skin
CPT/HCPCS: 36415; 71046; 78452; 80053; 80061; 83036; 84484; 85025; 86803; 93005; 93017; 96372; 99285; A9270-GY; A9502; G0378; J0280; J1650; J2785